=== PATIENT | male | born 1980 | race Caucasian/White ===

== ENCOUNTER 2022-03-15 12:35 | Emergency (ER) | payer MEDICAID ==
[~2022-03-15] VITALS: Ht 185 cm; Wt 79.4 kg
[~2022-03-15 12:35] MED LIST: PAXIL10 MG PO; XANAX0.25 MG; XANAX0.5 MG; XANAX1 MG PO; ZITHROMAX250 MG PO
[2022-03-15 13:00] LABS: BASO % 0.6 % (0.0-1.0); EOS % 0.5 % (1.0-4.0); LYMPH # 1.1 10*3/uL (1.3-4.4); MEAN CELL VOLUME 93.8 fl (80.0-94.0); MEAN CORPUSCULAR HGB 32.7 pg (27.0-31.0); MEAN CORPUSCULAR HGB CONC 34.9 g/dl (33.0-37.0); MEAN PLATELET VOLUME 9.2 fl (9.6-12.3); MONO # 0.9 10*3/uL (0.1-1.0); MONO % 13.7 % (3.0-9.0); NEUT # 4.5 10*3/uL (2.3-7.9); NEUT % 67.7 % (47.0-73.0); PLATELET COUNT AUTOMATED 96 10*3/uL (130-400); RED CELL DISTRI WIDTH 11.1 % (0-14.5); WHITE BLOOD COUNT 6.6 10*3/uL (4.8-10.8)
[2022-03-15 13:08] LABS: ACT PARTIAL THROMBO TIME 28.3 SECONDS (20.0-32.1)
[2022-03-15 13:15] LABS: ALKALINE PHOSPHATASE 105 U/L (45-117); BUN 9 mg/dl (7-24); CHLORIDE 99 mmol/L (98-107); CREATININE 1.16 mg/dL (0.70-1.30); POTASSIUM 3.7 mmol/L (3.5-5.1); SGOT/AST 230 IU/L (3-35); SGPT/ALT 240 U/L (12-78); SODIUM 130 mmol/L (136-145)
[2022-03-15 13:17] LABS: LIPASE 407 U/L (73-393)
[2022-03-15] MEDS ORDERED: ONDANSETRON4 MG SL (18:29)
== END 2022-03-15 18:54 | disposition home or self-care (01) ==
LOC: ED 12:35
PROVIDERS: Emergency Medicine
DX: K52.9 Noninfective gastroenteritis and colitis, unspecified (principal); R79.89 Other specified abnormal findings of blood chemistry; Z79.899 Other long term (current) drug therapy

== ENCOUNTER 2022-10-11 18:44 | Emergency (ER) | payer MEDICAID ==
[~2022-10-11] VITALS: Ht 182.8 cm; Wt 79.4 kg
[~2022-10-11 18:44] MED LIST changes: +ONDANSETRON4 MG SL
[2022-10-11] MEDS ORDERED: WELLBUTRIN XL150 MG PO (19:33)
[2022-10-11] MEDS ORDERED: BUSPAR5 MG PO (19:33)
[2022-10-11] MEDS ORDERED: VALIUM5 MG PO (19:34)
[2022-10-11] MEDS ORDERED: 'CLONIDINE0.1 MG PO (19:34)
== END 2022-10-11 21:50 | disposition home or self-care (01) ==
LOC: ED 18:44
DX: S89.92XA Unspecified injury of left lower leg, initial encounter (principal); I10 Essential (primary) hypertension; F41.9 Anxiety disorder, unspecified; F32.A Depression, unspecified; Z88.0 Allergy status to penicillin; X50.1XXA Overexertion from prolonged static or awkward postures, initial encounter; Y93.89 Activity, other specified; Y92.89 Other specified places as the place of occurrence of the external cause; Y99.8 Other external cause status

== ENCOUNTER → 2024-08-15 | Outpatient (CLI) | payer MEDICAID ==
[~2024-08-15] MED LIST changes: +'CLONIDINE0.1 MG PO; +BUSPAR5 MG PO; +VALIUM5 MG PO; +WELLBUTRIN XL150 MG PO
[2024-08-15 11:23] LABS: HEMATOCRIT 43.9 % (42.0-52.0); MEAN CELL VOLUME 91.3 fl (80.0-94.0); MEAN CORPUSCULAR HGB 31.4 pg (27.0-31.0); MEAN CORPUSCULAR HGB CONC 34.4 g/dl (33.0-37.0); MEAN PLATELET VOLUME 8.4 fl (9.6-12.3); RED BLOOD COUNT 4.81 10*6/uL (4.50-5.90); RED CELL DISTRI WIDTH 12.4 % (0-14.5); WHITE BLOOD COUNT 7.8 10*3/uL (4.8-10.8)
[2024-08-15 11:47] LABS: ALKALINE PHOSPHATASE 95 U/L (46-116); BUN 5 mg/dl (9-23); CHLORIDE 95 mmol/L (98-107); CHOLESTEROL 179 mg/dL (<200); GAMMA GLUTAMYL TRANSPEPTIDASE 135 U/L (0-73); LDL CHOLESTEROL 73 mg/dL (9-159); POTASSIUM 3.8 mmol/L (3.4-5.1); SGPT/ALT 46 U/L (5-49); TOTAL PROTEIN 7.6 gm/dL (6.0-8.0); TRIGLYCERIDES 88 mg/dl (<150)
[2024-08-15 11:50] LABS: VITAMIN D, 25-HYDROXY 18.4 ng/mL (30-100)
== END | disposition home or self-care (01) ==
LOC: LAB 10:54
PROVIDERS: ATTEND Family Medicine
DX: Z00.00 Encounter for general adult medical examination without abnormal findings (principal); E55.9 Vitamin D deficiency, unspecified; E78.00 Pure hypercholesterolemia, unspecified; E11.9 Type 2 diabetes mellitus without complications; R53.83 Other fatigue

== ENCOUNTER → 2024-08-31 | Outpatient (CLI) | payer MEDICAID ==
[2024-08-31 11:41] LABS: ALKALINE PHOSPHATASE 78 U/L (46-116); BUN < 5 mg/dl (9-23); CHLORIDE 98 mmol/L (98-107); POTASSIUM 3.9 mmol/L (3.4-5.1); SGPT/ALT 53 U/L (5-49); TOTAL PROTEIN 7.3 gm/dL (6.0-8.0)
== END | disposition home or self-care (01) ==
LOC: LAB 10:39
PROVIDERS: ATTEND Family Medicine
DX: E03.9 Hypothyroidism, unspecified (principal)

== ENCOUNTER 2025-02-25 07:07 | Emergency (ER) | payer MEDICAID ==
[~2025-02-25] VITALS: Ht 185.4 cm; Wt 90.7 kg
[2025-02-25] MEDS ORDERED: PRISTIQ100 MG PO (07:14)
[2025-02-25] MEDS ORDERED: BUSPIRONE HCL30 MG PO (07:14)
[2025-02-25] MEDS ORDERED: CLONIDINE HCL0.1 M1 PO (07:14)
[2025-02-25] MEDS ORDERED: VIVITROL380 MG IM (07:15)
[2025-02-25] MEDS ORDERED: AMLODIPINE BESYL5 MG PO (07:15)
[2025-02-25] MEDS ORDERED: Lopressor25 MG PO (07:16)
[2025-02-25] MEDS ORDERED: VALACYCLOVIR500 M1 PO (07:17)
[2025-02-25] MEDS ORDERED: FLUOROMETHOLONE5 ML OPH (07:17)
[2025-02-25] MEDS ORDERED: DEXAMETHASONE OP (07:18)
[2025-02-25] MEDS ORDERED: SODIUM CHLORIDE 0.9% 1,000 ML IV ONE (07:30)
[2025-02-25] MEDS ORDERED: Ondansetron Hydrochloride 4 MG/2 ML VIAL IV ONE (07:30)
[2025-02-25] MEDS ORDERED: IOHEXOL 300 MG/ML 100 ML VIAL IV ONE (07:45)
[2025-02-25 07:54] LABS: BASO # 0.0 10*3/uL (0.0-0.1); BASO % 0.6 % (0.0-1.0); EOS # 0.1 10*3/uL (0.0-0.4); EOS % 0.8 % (1.0-4.0); MEAN CELL VOLUME 88.0 fl (80.0-94.0); MEAN CORPUSCULAR HGB 30.7 pg (27.0-31.0); MEAN PLATELET VOLUME 8.4 fl (9.6-12.3); MONO # 0.8 10*3/uL (0.1-1.0); MONO % 11.7 % (3.0-9.0); NEUT # 4.0 10*3/uL (2.3-7.9); NEUT % 56.7 % (47.0-73.0); NUCLEATED RED BLOOD CELL 0.0 % (0.0-0.0); NUCLEATED RED BLOOD CELL 0.0 10*3/uL (0.0-0.0); PLATELET COUNT AUTOMATED 240 10*3/uL (130-400); RED CELL DISTRI WIDTH 10.9 % (0-14.5)
[2025-02-25 08:13] LABS: BUN 5 mg/dl (9-23); SGPT/ALT 13 U/L (5-49)
== END 2025-02-25 11:51 | disposition home or self-care (01) ==
LOC: ED 07:07
PROVIDERS: Internal Medicine
DX: R10.9 Unspecified abdominal pain (principal); R53.83 Other fatigue; R63.0 Anorexia; Z88.0 Allergy status to penicillin; Z79.899 Other long term (current) drug therapy